=== PATIENT | male | born 1980 | race Two or more races ===

== ENCOUNTER 2016-08-31 12:44 | Emergency (ER) | payer OTHER ==
[2016-08-31] MEDS ORDERED: NORMAL SALINE 1,000 ML IV ONE (13:34)
--- NOTE | 2016-08-31 13:36 | ER Document Report ---
ED Medical Screen (RME) - General Chief Complaint: Passed Out Prior to Arrival Stated Complaint: FALL ARM PAIN SYNCOPE TRAVEL OUTSIDE OF THE [place] IN LAST 30 DAYS: No - HPI Patient complains to provider of: syncope Notes: 08/31/16 13:35 Patient states standing up passing out denies any fevers chills nausea vomiting. Patient currently plans of left shoulder left elbow pain. States take sleeping medication - Related Data Allergies/Adverse Reactions: No Known Allergies Allergy (Verified 08/31/16 12:46) Past Medical History Renal/ Medical History: Denies: Hx Peritoneal Dialysis Review of Systems - Review of Systems Cardiovascular: Syncope Physical Exam - Vital signs Vitals: Temp Pulse Resp BP Pulse Ox 98.4 F 113 H 17 127/85 H 99 08/31/16 12:48 08/31/16 12:48 08/31/16 12:48 08/31/16 12:48 08/31/16 12:48 - Respiratory Respiratory status: No respiratory distress Chest status: Nontender Breath sounds: Normal Chest palpation: Normal Course - Vital Signs Vital signs: Temp Pulse Resp BP Pulse Ox 98.4 F 113 H 17 127/85 H 99 08/31/16 12:48 08/31/16 12:48 08/31/16 12:48 08/31/16 12:48 08/31/16 12:48
[2016-08-31 14:14] LABS: ABSOLUTE LYMPHOCYTES (AUTO) 1.2 10^3/uL (0.5-4.7); ABSOLUTE MONOCYTES (AUTO) 0.4 10^3/uL (0.1-1.4); ABSOLUTE NEUT (AUTO) 8.5 10^3/uL (1.7-8.2); BASOPHILS % (AUTO) 0.2 % (0-2); EOSINOPHILS % (AUTO) 0.2 % (0-6); HEMOGLOBIN 15.5 g/dL (13.5-17.0); HGB HCT DIFFERENCE 1.5; MEAN CORPUSCULAR HEMOGLOBIN 30.6 pg (27.0-33.4); MEAN CORPUSCULAR HGB CONC 34.5 g/dL (32.0-36.0); MEAN CORPUSCULAR VOLUME 89 fl (80-97); MONOCYTES % (AUTO) 3.5 % (3-13); RED BLOOD COUNT 5.08 10^6/uL (4.35-5.55); RED CELL DISTRIBUTION WIDTH 13.3 % (11.5-14.0); SEGMENTED NEUTROPHILS % (AUTO) 84.1 % (42-78); WHITE BLOOD COUNT 10.1 10^3/uL (4.0-10.5)
[2016-08-31 14:18] LABS: APPEARANCE,URINE CLEAR; BILIRUBIN,URINE NEGATIVE (NEGATIVE); GLUCOSE, URINE NEGATIVE (NEGATIVE); KETONES,URINE NEGATIVE (NEGATIVE); LEUKOCYTE ESTERASE,URINE TRACE (NEGATIVE); NITRITE,URINE NEGATIVE (NEGATIVE); PROTEIN,URINE 30 mg/dL (NEGATIVE); URINE SPECIFIC GRAVITY 1.017
[2016-08-31 14:20] LABS: PROTHROMBIN TIME 13.4 SEC (11.4-15.4)
[2016-08-31 14:33] LABS: ALANINE AMINOTRANSFERASE 32 U/L (21-72); ALBUMIN 4.9 g/dL (3.5-5.0); ALKALINE PHOSPHATASE 90 U/L (38-126); ANION GAP 16 (5-19); ASPARTATE AMINO TRANSFERASE 18 U/L (17-59); BILIRUBIN,DIRECT 0.2 mg/dL (0.0-0.4); BILIRUBIN,TOTAL 0.7 mg/dL (0.2-1.3); BLOOD UREA NITROGEN 12 mg/dL (7-20); CALCIUM 10.8 mg/dL (8.4-10.2); CARBON DIOXIDE 31 mmol/L (22-30); CHLORIDE 97 mmol/L (98-107); CREATINE KINASE 57 U/L (55-170); CREATININE RESULT 1.02 mg/dL (0.52-1.25); GLUCOSE 135 mg/dL (75-110); LIPASE 239.2 U/L (23-300); POTASSIUM 3.7 mmol/L (3.6-5.0); SODIUM 143.9 mmol/L (137-145); TOTAL PROTEIN 8.5 g/dL (6.3-8.2)
[2016-08-31 14:44] LABS: CREATINE KINASE MB < 0.22 ng/mL (<4.55); TROPONIN I < 0.012 ng/mL
[2016-08-31 14:54] LABS: URINE BARBITURATES SCREEN NEGATIVE; URINE METHADONE SCREEN NEGATIVE; URINE OPIATES LOW NEGATIVE; URINE PHENCYCLIDINE SCREEN NEGATIVE
--- NOTE | 2016-08-31 15:07 | ER Document Report ---
ED General - General Chief Complaint: Passed Out Prior to Arrival Stated Complaint: FALL ARM PAIN SYNCOPE Mode of Arrival: Ambulatory Information source: Patient Notes: This is a 36-year-old male with no significant past medical history presents for evaluation of left shoulder pain. He states that upon awakening this morning at about 9 AM he stood up and became dizzy and had tunnel vision. He then had a syncopal episode and fell hitting his left shoulder. His left shoulder and elbow have hurt since that time. He states he has a history of getting dizzy when he stands too quickly but has never actually fainted. He denies any chest pain or shortness of breath. He feels fine now. No recent fevers chills or systemic symptoms. No recent illness. TRAVEL OUTSIDE OF THE [place] IN LAST 30 DAYS: No - Related Data Allergies/Adverse Reactions: No Known Allergies Allergy (Verified 08/31/16 12:46) Past Medical History - General Information source: Patient - Social History Smoking Status: Never Smoker Frequency of alcohol use: Rare Drug Abuse: None Lives with: Family Family History: Reviewed & Not Pertinent Patient has suicidal ideation: No Patient has homicidal ideation: No - Past Medical History Cardiac Medical History: Reports: None Pulmonary Medical History: Reports: None Renal/ Medical History: Denies: Hx Peritoneal Dialysis Surgical Hx: Negative Review of Systems - Review of Systems Notes: REVIEW OF SYSTEMS: CONSTITUTIONAL : Denies fever, chills, or sweats. Denies recent illness. EENT: Denies eye, ear, throat, or mouth pain or symptoms. Denies nasal or sinus congestion. CARDIOVASCULAR: Denies chest pain. RESPIRATORY: Denies cough, cold, or chest congestion. Denies shortness of breath, difficulty breathing, or wheezing. GASTROINTESTINAL: Denies abdominal pain. Denies nausea, vomiting, or diarrhea. GENITOURINARY: Denies difficulty urinating, painful urination, burning, frequency, or blood in urine. MUSCULOSKELETAL: Denies neck or back pain or joint pain or swelling. LUE pain as per HPI SKIN: Denies rash or skin lesions. HEMATOLOGIC : Denies easy bruising or bleeding. LYMPHATIC: Denies swollen, enlarged glands. NEUROLOGICAL: Denies altered mental status or loss of consciousness. Denies headache. As per HPI PSYCHIATRIC: Denies anxiety or stress or depression. ALL OTHER SYSTEMS REVIEWED AND NEGATIVE. Physical Exam - Vital signs Vitals: Temp Pulse Resp BP Pulse Ox 98.4 F 113 H 17 127/85 H 99 08/31/16 12:48 08/31/16 12:48 08/31/16 12:48 08/31/16 12:48 08/31/16 12:48 - Notes Notes: PHYSICAL EXAMINATION: GENERAL: Well-appearing, well-nourished and in no acute distress. Pleasant and conversant HEAD: Atraumatic, normocephalic. EYES: Pupils equal round and reactive to light, extraocular movements intact, sclera anicteric, conjunctiva are normal. ENT: nares patent, oropharynx clear without exudates. Moist mucous membranes. NECK: Normal range of motion, supple without lymphadenopathy LUNGS: Breath sounds clear to auscultation bilaterally and equal. No wheezes rales or rhonchi. HEART: Regular rate and rhythm without murmurs ABDOMEN: Soft, nontender, normoactive bowel sounds. No guarding, no rebound. No masses appreciated. EXTREMITIES: Normal range of motion, no pitting or edema. No cyanosis. LUE: FROM to shoulder, elbow, wrist. No obvious swelling/deformity. There is a superficial abrasion just distal to elbow with scab. Surrounding mild erythema and slight streaking distally consistent with mild lymphangitis. No lymphadenopthy. No track nñuez. No abscess. DNVI NEUROLOGICAL: Cranial nerves grossly intact. Normal speech, normal gait. Normal sensory, motor, and reflex exams. PSYCH: Normal mood, normal affect. Course - Re-evaluation Re-evalutation: 08/31/16 15:55 Patient is well-appearing with a normal EKG and reassuring labs. His orthostatic vital signs are within normal limits. AT This time I will treat his left upper extremities developing cellulitis with antibiotics and have him follow-up with his primary care physician. Strict return precautions were discussed. He is comfortable with this plan. - Vital Signs Vital signs: Temp Pulse Resp BP Pulse Ox 97.9 F 90 17 131/89 H 99 08/31/16 15:52 08/31/16 15:50 08/31/16 12:48 08/31/16 15:50 08/31/16 12:48 - Laboratory Result Diagrams: 08/31/16 13:40 08/31/16 13:40 Laboratory results interpreted by me: 08/31/16 08/31/16 08/31/16 13:40 13:40 13:40 Seg Neutrophils % 84.1 H Lymphocytes % 12.0 L Absolute Neutrophils 8.5 H Chloride 97 L Carbon Dioxide 31 H Glucose 135 H Calcium 10.8 H Total Protein 8.5 H Urine Protein 30 H Urine Urobilinogen 4.0 H Ur Leukocyte Esterase TRACE H - Diagnostic Test Radiology reviewed: Reports reviewed - L shoulder, elbow, CXR: within normal limits - EKG Interpretation by Me Additional EKG results interpreted by me: 08/31/16 15:10 EKG at 13 4060 measures normal sinus rhythm with a rate 99. There are nonspecific T-wave changes. There is no ST segment elevation or depression. Discharge - Discharge Clinical Impression: Lymphangitis Episode of syncope Qualifiers: Syncope type: unspecified Qualified Code(s): R55 - Syncope and collapse Abrasion forearm Qualifiers: Encounter type: initial encounter Laterality: left Qualified Code(s): S50.812A - Abrasion of left forearm, initial encounter Condition: Stable Disposition: HOME, SELF-CARE Additional Instructions: Syncopal Episode Syncope (fainting or near-fainting) can occur from many different health problems. Or it can be a simple fainting spell requiring no treatment. It is safe for you to go home, but further evaluation will likely be necessary. Your work-up may include tests for internal bleeding, heart disease, medication problems, or near-strokes. Tests are not always required, however, depending on the nature of your problem. The warning signs of an impending faint include: dizziness, lightheadedness , nausea, hot flashes, tingling, and weakness. If this happens, lay down and put your feet up, then wait until all of these symptoms have passed before standing up again. If these episodes become recurrent, or if you develop chest pain, heart palpitations, mental confusion, blurred vision, or headache, then you should call the physician, or go to the emergency room. CELLULITIS: You have an infection of your skin and underlying soft tissues called cellulitis. This is due to bacteria, which can enter through any break in the skin, or even through an irritated hair follicle. Untreated, cellulitis will usually worsen. Antibiotics are required. Usually, warm packs or warm soaks, and elevation of the infected area are recommended. You should start getting better within 24 to 36 hours. Most infections respond quickly to the right medication. Follow-up care is important, however, to check for abscess (boil) formation, unsuspected foreign body, or resistant infection. If you develop fever, chills, or if the area of infection is becoming rapidly more swollen or painful, call the doctor at once. ANTIBIOTIC THERAPY: You have been given an antibiotic prescription. It's important that you take all the medication, unless instructed otherwise by your physician. Failure to complete the entire course can result in relapse of your condition. Common side effects of antibiotics include nausea, intestinal cramping, or diarrhea. Women may develop vaginal yeast infections, and babies can get yeast (thrush) in the mouth following the use of antibiotics. Contact your physician if you develop significant side effects from this medication. Allergy to this antibiotic can result in hives, wheezing, faintness, or itching. If symptoms of allergy occur, stop the medication and call the doctor. FOLLOW-UP CARE: If you have been referred to a physician for follow-up care, call the physician s office for an appointment as you were instructed or within the next two days. If you experience worsening or a significant change in your symptoms, notify the physician immediately or return to the Emergency Department at any time for re-evaluation. Prescriptions: Cephalexin Monohydrate [Keflex 500 mg Capsule] 500 mg PO QID #28 capsule
[2016-08-31] MEDS ORDERED: IBUPROFEN 800 MG TABLET PO ONE (15:11)
[2016-08-31 15:52] VITALS: BP 131/89
--- NOTE | 2016-08-31 21:11 | EKG REPORT ---
SEVERITY:- BORDERLINE ECG - SINUS RHYTHM BORDERLINE T ABNORMALITIES, INFERIOR LEADS : Confirmed by: Bebe Archibald MD 31-Aug-2016 21:10:03
== END 2016-08-31 16:20 | disposition home or self-care (01) ==
LOC: ER 12:44
DX: I89.1 Lymphangitis (principal); R55 Syncope and collapse; M25.512 Pain in left shoulder; S50.812A Abrasion of left forearm, initial encounter; X58.XXXA Exposure to other specified factors, initial encounter
CPT/HCPCS: 36415; 71020; 80053; 80307; 81001; 82550; 82553; 83690; 84484; 85025; 85610; 93005; 93010; 99284

== ENCOUNTER 2018-10-26 16:30 | Emergency (ER) | payer MEDICAID, OTHER ==
[2018-10-26] MEDS ORDERED: FENTANYL CITRATE INJ/PF 100 MCG/2 ML AMPUL IV ONE (17:21)
[2018-10-26] MEDS ORDERED: NORMAL SALINE 1000 ML 1,000 ML IV ONE (17:21)
[2018-10-26] MEDS ORDERED: ONDANSETRON HCL INJ/PF 4 MG/2 ML SDV IV ONE (17:21)
--- NOTE | 2018-10-26 17:27 | ER Document Report ---
ED Medical Screen (RME) - General Chief Complaint: Abdominal Pain Stated Complaint: RIGHT SIDE PAIN Time Seen by Provider: 10/26/18 17:19 Notes: Pt. presents with RLQ pain. Stated started this afternoon. stated sharp and also in his back. stated sometimes the pain comes from his back and moves around to the front of his abd. h/o kidney stones, denies dysuria. PE: general pain RLQ and also right flank region. Somewhat limited d/t being in triage and sitting in a chair. plan: labs, pain medication. holding imaging at this time until we can get a full abd exam while laying flat and lab results. I have greeted and performed a rapid initial assessment of this patient. A comprehensive ED assessment and evaluation of the patient, analysis of test results and completion of the medical decision making process will be conducted by additional ED providers. TRAVEL OUTSIDE OF THE [place] IN LAST 30 DAYS: No - Related Data Allergies/Adverse Reactions: No Known Allergies Allergy (Verified 08/31/16 12:46) Past Medical History Renal/ Medical History: Denies: Hx Peritoneal Dialysis Physical Exam - Vital signs Vitals: Temp Pulse Resp BP Pulse Ox 98.1 F 94 21 H 143/96 H 97 10/26/18 17:22 10/26/18 17:22 10/26/18 17:22 10/26/18 17:22 10/26/18 17:22 Course - Vital Signs Vital signs: Temp Pulse Resp BP Pulse Ox 98.1 F 94 21 H 143/96 H 97 10/26/18 17:22 10/26/18 17:22 10/26/18 17:22 10/26/18 17:22 10/26/18 17:22
[2018-10-26 18:44] LABS: ABSOLUTE LYMPHOCYTES (AUTO) 0.7 10^3/uL (0.5-4.7); ABSOLUTE MONOCYTES (AUTO) 0.4 10^3/uL (0.1-1.4); ABSOLUTE NEUT (AUTO) 10.9 10^3/uL (1.7-8.2); BASOPHILS % (AUTO) 0.2 % (0-2); HEMATOCRIT 42.7 % (37.9-51.0); HEMOGLOBIN 14.3 g/dL (13.5-17.0); LYMPHOCYTES % (AUTO) 5.7 % (13-45); MEAN CORPUSCULAR HEMOGLOBIN 29.6 pg (27.0-33.4); MEAN CORPUSCULAR HGB CONC 33.6 g/dL (32.0-36.0); MEAN CORPUSCULAR VOLUME 88 fl (80-97); MONOCYTES % (AUTO) 3.1 % (3-13); PLATELET COUNT 314 10^3/uL (150-450); RED BLOOD COUNT 4.84 10^6/uL (4.35-5.55); RED CELL DISTRIBUTION WIDTH 13.5 % (11.5-14.0); TOTAL CELLS COUNTED % (AUTO) 100 %
[2018-10-26 18:57] LABS: APPEARANCE,URINE SLIGHTLY-CLOUDY; BILIRUBIN,URINE SMALL (NEGATIVE); COLOR,URINE YELLOW; GLUCOSE, URINE NEGATIVE (NEGATIVE); KETONES,URINE NEGATIVE (NEGATIVE); LEUKOCYTE ESTERASE,URINE TRACE (NEGATIVE); NITRITE,URINE NEGATIVE (NEGATIVE); PROTEIN,URINE 30 mg/dL (NEGATIVE)
[2018-10-26 19:17] LABS: ALANINE AMINOTRANSFERASE 14 U/L (21-72); ALKALINE PHOSPHATASE 90 U/L (38-126); ANION GAP 13 (5-19); ASPARTATE AMINO TRANSFERASE 17 U/L (17-59); BILIRUBIN,DIRECT 0.4 mg/dL (0.0-0.4); BILIRUBIN,TOTAL 0.8 mg/dL (0.2-1.3); BLOOD UREA NITROGEN 13 mg/dL (7-20); CALCIUM 10.8 mg/dL (8.4-10.2); CARBON DIOXIDE 29 mmol/L (22-30); CHLORIDE 100 mmol/L (98-107); GLUCOSE 116 mg/dL (75-110); POTASSIUM 4.2 mmol/L (3.6-5.0); SODIUM 141.8 mmol/L (137-145); TOTAL PROTEIN 8.8 g/dL (6.3-8.2)
[2018-10-26] MEDS ORDERED: KETOROLAC TROMETHAMINE INJ/PF 30 MG/1 ML SDV IV ONE (20:55)
[2018-10-26] MEDS ORDERED: TAMSULOSIN HCL 0.4 MG CAP.SR.24H PO ONE (20:55)
[2018-10-26] MEDS ORDERED: HYDROCODONE/ACETAMINOPHEN 5-325 MG (6 TAB/ER DISP) PO PRN (20:56)
[2018-10-26] MEDS ORDERED: ONDANSETRON ODT 4 MG TAB (6 TAB/ER DISP) PO PRN (20:57)
--- NOTE | 2018-10-26 20:58 | ER Document Report ---
ED General - General Chief Complaint: Abdominal Pain Stated Complaint: RIGHT SIDE PAIN Time Seen by Provider: 10/26/18 17:19 Notes: Patient is a 38-year-old male without chronic medical problems but does have a history of nephrolithiasis, presents complaining of right flank pain radiating to his right lower abdomen. Patient states that the pain started relatively abruptly earlier today while he was at work localized almost exclusively into the right flank initially and progressing down into his right lower abdomen throughout the day. Describes the pain as being a severe, stabbing, constant discomfort with waves of more intense pain. He has had associated nausea and multiple episodes of vomiting. States this feels very similar 20s had a kidney stone in the past. He denies any exacerbating or alleviating factors. He has not had fever. Has not seen his primary care doctor regarding today's concerns. TRAVEL OUTSIDE OF THE [place] IN LAST 30 DAYS: No - Related Data Allergies/Adverse Reactions: codeine Allergy (Verified 10/26/18 17:57) Tachycardia Past Medical History - General Information source: Patient - Social History Smoking Status: Never Smoker Chew tobacco use (# tins/day): No Frequency of alcohol use: None Drug Abuse: None Lives with: Family Family History: Reviewed & Not Pertinent Patient has suicidal ideation: No Patient has homicidal ideation: No Renal/ Medical History: Denies: Hx Peritoneal Dialysis Review of Systems - Review of Systems Notes: Constitutional: Negative for fever. HENT: Negative for sore throat. Eyes: Negative for visual changes. Cardiovascular: Negative for chest pain. Respiratory: Negative for shortness of breath. Gastrointestinal: Positive for abdominal pain and vomiting Genitourinary: Negative for dysuria. Musculoskeletal: Negative for back pain. Skin: Negative for rash. Neurological: Negative for headaches, weakness or numbness. 10 point ROS negative except as marked above and in HPI. Physical Exam - Vital signs Vitals: Temp Pulse Resp BP Pulse Ox 98.1 F 94 21 H 143/96 H 97 10/26/18 17:22 10/26/18 17:22 10/26/18 17:22 10/26/18 17:22 10/26/18 17:22 Interpretation: Hypertensive Notes: PHYSICAL EXAMINATION: GENERAL: Well-appearing, well-nourished and in no acute distress. HEAD: Atraumatic, normocephalic. EYES: Pupils equal round and reactive to light, extraocular movements intact, s clera anicteric, conjunctiva are normal. ENT: nares patent, oropharynx clear without exudates. Moist mucous membranes. NECK: Normal range of motion, supple without lymphadenopathy LUNGS: Breath sounds clear to auscultation bilaterally and equal. No wheezes rales or rhonchi. HEART: Regular rate and rhythm without murmurs ABDOMEN: Soft, mild right CVA tenderness, abdomen otherwise nontender, normoactive bowel sounds. No guarding, no rebound. No masses appreciated. EXTREMITIES: Normal range of motion, no pitting or edema. No cyanosis. NEUROLOGICAL: No focal neurological deficits. Moves all extremities spontaneously and on command. PSYCH: Normal mood, normal affect. SKIN: Warm, Dry, normal turgor, no rashes or lesions noted. Course - Re-evaluation Re-evalutation: 10/26/18 20:56 Presents with findings consistent with acute nephrolithiasis. Urinalysis does show hematuria. Has a history of kidney stones in the past and states that this does feel the same. Will not perform CT imaging per [facility] clinical recomm endations. laboratory otherwise unremarkable. Pain was able to be controlled here in the emergency department. Patient is tolerating oral intake. Clinical history is not consistent with an acute abdominal aneurysm or dissection, ID, or pulmonary embolus. Urinalysis does not show findings consistent with an infected stone. Vitals have remained within normal limits. Patient will be discharged with recommendations to follow-up with urology, pain medications, and return precautions. They are in agreement with this plan and verbalized indications return to emergency department. - Vital Signs Vital signs: Temp Pulse Resp BP Pulse Ox 97.8 F 73 18 139/82 H 97 10/26/18 21:29 10/26/18 21:29 10/26/18 21:29 10/26/18 21:29 10/26/18 21:29 - Laboratory Result Diagrams: 10/26/18 18:13 10/26/18 18:13 Laboratory results interpreted by me: 10/26/18 10/26/18 10/26/18 17:50 18:13 18:13 WBC 12.0 H Seg Neutrophils % 91.0 H Lymphocytes % 5.7 L Absolute Neutrophils 10.9 H Glucose 116 H Calcium 10.8 H ALT 14 L Total Protein 8.8 H Urine Protein 30 H Urine Blood LARGE H Urine Bilirubin SMALL H Urine Urobilinogen 4.0 H Ur Leukocyte Esterase TRACE H Discharge - Discharge Clinical Impression: Right flank pain, Right kidney stone Nausea and vomiting Qualifiers: Vomiting type: unspecified Vomiting Intractability: non-intractable Qualified Code(s): R11.2 - Nausea with vomiting, unspecified Condition: Good Disposition: HOME, SELF-CARE Additional Instructions: Your symptoms should improve over the course of the next one week. If you continue to have pain for greater than one week or your pain is not controlled with the pain medications that you have been sent home with you need to return to the emergency department. Please also return if you develop fever, persistent vomiting, or any other symptoms that are concerning to you. You jason uld take ibuprofen 600 mg every 6 hours and use the oral [place] with which you have been sent home only for pain not controlled by ibuprofen. You are also been sent home with a medication called Flomax to help pass the stone. You've been given Zofran to assist with nausea. Please follow-up with urology in the next 2-3 days. Prescriptions: Tamsulosin HCl [Flomax 0.4 mg Cap.sr] 0.4 mg PO DAILY #7 cap.sr.24h Forms: Return to Work
[2018-10-26 21:30] VITALS: BP 139/82
== END 2018-10-26 21:30 | disposition home or self-care (01) ==
LOC: ER 16:30
DX: N20.0 Calculus of kidney (principal); R10.31 Right lower quadrant pain; R11.2 Nausea with vomiting, unspecified; Z88.6 Allergy status to analgesic agent; Z87.442 Personal history of urinary calculi
CPT/HCPCS: 99284; 96361; 96374; 96375; 36415; 85025; 80053; 81001; J3010; J1885; J2405; J7030